=== PATIENT | male | born 1995 | race Caucasian/White ===

== ENCOUNTER 2017-02-28 02:14 | Inpatient (IN) | payer MEDICAID ==
[2017-02-28] MEDS ORDERED: Albuterol-Ipratrop 3 mg / 0.5 (3 ml) UD ONE ×3 (02:24→09:00)
[2017-02-28] MEDS ORDERED: Sodium Chloride 0.9% 1,000 ML IV ONE (02:42)
[2017-02-28] MEDS: Albuterol-Ipratrop 3 mg / 0.5 (3 ml) UD IH SCH (02:45)
[2017-02-28 03:03] LABS: BASO # 0.1 K/uL (0.0-0.2); BASO % 0.8 % (0.0-2.0); EOS # 0.2 K/uL (0.0-0.7); EOS % 2.4 % (0.0-4.0); HEMATOCRIT 49.6 % (35.0-51.0); LYMPH # 0.9 K/uL (1.0-4.3); LYMPH % 13.9 % (20.0-40.0); MEAN CORPUSCULAR HEMOGLOBIN 29.5 pg (27.0-31.0); MEAN CORPUSCULAR HGB CONC 33.6 g/dL (33.0-37.0); MEAN PLATELET VOLUME 10.1 fL (7.2-11.7); MONO # 0.7 K/uL (0.0-0.8); MONO % 11.1 % (0.0-10.0); NRBC % 0.1 % (0.0-2.0); RED CELL DISTRIBUTION WIDTH 13.5 % (11.5-14.5); WHITE BLOOD COUNT 6.6 K/uL (4.8-10.8)
[2017-02-28 03:21] LABS: CHLORIDE 101 mmol/L (98-107); SODIUM 142 mmol/L (132-148)
[2017-02-28 03:23] LABS: AST/SGOT 28 U/L (17-59); BILIRUBIN,TOTAL 1.2 mg/dL (0.2-1.3); CARBON DIOXIDE 24 mmol/L (22-30); GFR AFRICAN-AMERICAN > 60
[2017-02-28 03:24] LABS: ALB/GLOB RATIO 1.3 (1.0-2.1); ALKALINE PHOSPHATASE 87 U/L (38-126); ALT/SGPT 22 U/L (21-72); BLOOD UREA NITROGEN 14 mg/dL (9-20); CALCIUM 9.2 mg/dl (8.6-10.4); GLUCOSE,RANDOM 96 mg/dL (75-110); TOTAL PROTEIN 7.6 g/dL (6.3-8.3)
--- NOTE | 2017-02-28 03:48 | C.PDOC ---
History Of Present Illness 22 yo male c/o SOB for 5 days, worse recently. Has been using his nebulizer at home without relief. Notes his chest feels "tight", no chest pain. No recent asthma exacerbation admission - "not since I was a teen." No fever. Time Seen by Provider: 02/28/17 02:21 Chief Complaint (Nursing): Shortness Of Breath History Per: Patient History/Exam Limitations: no limitations Onset/Duration Of Symptoms: Days Current Symptoms Are (Timing): Still Present Past Medical History Reviewed: Historical Data, Nursing Documentation, Vital Signs Vital Signs: Last Vital Signs Temp 98 F 02/28/17 02:28 Pulse 89 02/28/17 02:28 Resp 16 02/28/17 02:31 BP 132/82 02/28/17 02:28 Pulse Ox 90 L 02/28/17 04:55 - Medical History PMH: Asthma - [facility] Procedures LINEAR REP LID LACER (04/04/13) Family History: States: Unknown Family Hx - Social History Hx Tobacco Use: No Hx Alcohol Use: No Hx Substance Use: Yes - Immunization History Hx Tetanus Toxoid Vaccination: Yes Hx Influenza Vaccination: Yes Hx Pneumococcal Vaccination: Yes Review Of Systems Except As Marked, All Systems Reviewed And Found Negative. Respiratory: Positive for: Shortness of Breath, Wheezing Physical Exam - Physical Exam Appears: Well, Non-toxic, In Acute Distress (respiratory distress) Skin: Warm, Dry Head: Atraumatic, Normacephalic Eye(s): bilateral: Normal Inspection, EOMI Nose: Normal Oral Mucosa: Moist Throat: Normal, No Erythema, No Exudate Neck: Normal ROM, Supple Chest: Symmetrical Cardiovascular: Rhythm Regular Respiratory: No Rales, No Rhonchi, Wheezing (Bilateral wheezing) Gastrointestinal/Abdominal: Soft, No Tenderness Neurological/Psych: Oriented x3, Normal Speech, Normal Cognition, Other (No focal deficit) ED Course And Treatment - Laboratory Results Result Diagrams: 02/28/17 02:58 02/28/17 02:58 O2 Sat by Pulse Oximetry: 90 Pulse Ox Interpretation: Abnormal - Radiology CXR: Interpreted by Me, Viewed By Me CXR Interpretation: Yes: No Acute Disease Progress Note: Impression: A 22 y/o M c/o chest pain and wheezing. Plans: CXR, Nebulizer treatment, PrednisoLONE, IV fluids, Reassess. On re-evaluation, pt continues to wheezing and c/o sob. Pulse ox 92% on RA. Case discsused ith Dr Velasco, agreed upon admission. Disposition - Disposition Disposition: HOSPITALIZED Disposition Time: 05:00 Condition: STABLE - Clinical Impression Clinical Impression: Status asthmaticus, Hypoxia - Scribe Statement The provider has reviewed the documentation as recorded by the Scribe Syl laura All medical record entries made by the Scribe were at my direction and personally dictated by me. I have reviewed the chart and agree that the record accurately reflects my personal performance of the history, physical exam, medical decision making, and the department course for this patient. I have also personally directed, reviewed, and agree with the discharge instructions and disposition.
[2017-02-28] MEDS: Albuterol-Ipratrop 3 mg / 0.5 (3 ml) UD INH SCH ×5 (04:00→19:57)
[2017-02-28] MEDS ORDERED: Moxifloxacin IV 400mg/250ml NS 400 MG/250 ML BAG IVPB ONE (06:00)
[2017-02-28] MEDS ORDERED: Enoxaparin 150 mg Syringe SC SCH (06:00)
--- NOTE | 2017-02-28 07:37 | RAD ---
PROCEDURE: CHEST RADIOGRAPH, 1 VIEW HISTORY: Shortness of breath COMPARISON: None available. FINDINGS: LUNGS: Hyperinflation with peribronchial cuffing suggestive for underlying asthma. Question biapical pleural thickening. No gross focal infiltrate or effusion. PLEURA: No pneumothorax or pleural fluid seen. CARDIOVASCULAR: Normal. OSSEOUS STRUCTURES: No significant abnormalities. VISUALIZED UPPER ABDOMEN: Normal. OTHER FINDINGS: None. IMPRESSION: Hyperinflation with peribronchial cuffing suggestive for underlying asthma. Question biapical pleural thickening. No gross focal infiltrate or effusion.
[2017-02-28] MEDS: Pantoprazole 40 mg EC Tab PO SCH (10:22)
[2017-02-28] MEDS: Fluticasone-Salmeterol 250-50mcg Diskus INH SCH ×2 (11:20→19:59)
--- NOTE | 2017-02-28 12:58 | CP.PCM.CON ---
History of Present Illness - History of Present Illness History of Present Illness: reason for consultation: shortness of breat 22-year-old male with history off asthma presented to emergency room complaining off worsening shortness of breath. patient states that he is been using rescue inhaler more frequently without any response. Also complaining off slight cough but denies fever chills, denies chest pain Review of Systems - Review of Systems All systems: reviewed and no additional remarkable complaints except (shortness of breath) Past Patient History - Infectious Disease Hx of Infectious Diseases: None - Past Medical History & Family History Past Medical History?: No - Past Social History Smoking Status: Never Smoked - PULMONARY Hx Asthma: Yes - MUSCULOSKELETAL/RHEUMATOLOGICAL Hx Falls: No - PSYCHIATRIC Hx Substance Use: Yes (marajuana) - SURGICAL HISTORY Hx Surgeries: No - ANESTHESIA Hx Anesthesia: No Hx Anesthesia Reactions: No Hx Malignant Hyperthermia: No Meds Allergies/Adverse Reactions: Allergies Allergy/AdvReac Type Severity Reaction Status Date / Time tree nut Allergy Verified 02/28/17 04:04 Peanuts Allergy SHORTNESS Uncoded 02/28/17 04:05 OF BREATH - Medications Medications: Current Medications Albuterol/Ipratropium (Duoneb 3 Mg/0.5 Mg (3 Ml) Ud) 3 ml INH Q4 [facility] Last Admin: 02/28/17 11:20 Dose: 3 ml Enoxaparin Sodium (Lovenox) 40 mg SC Q12H [facility] Last Admin: 02/28/17 08:38 Dose: 40 mg Montelukast Sodium (Singulair) 10 mg PO DAILY [facility] Last Admin: 02/28/17 10:22 Dose: 10 mg Pantoprazole Sodium (Protonix Ec Tab) 40 mg PO DAILY [facility] Last Admin: 02/28/17 10:22 Dose: 40 mg Fluticasone/Salmeterol (Advair Diskus 250/50) 1 puff INH RQ12 [facility] Last Admin: 02/28/17 11:20 Dose: Not Given Physical Exam - Constitutional Appears: No Acute Distress - Head Exam Head Exam: ATRAUMATIC, NORMOCEPHALIC - Eye Exam Eye Exam: Normal appearance - ENT Exam ENT Exam: Mucous Membranes Moist - Neck Exam Neck exam: Positive for: Normal Inspection - Respiratory Exam Respiratory Exam: Rhonchi - Cardiovascular Exam Cardiovascular Exam: REGULAR RHYTHM - GI/Abdominal Exam GI & Abdominal Exam: Normal Bowel Sounds, Soft - Extremities Exam Extremities exam: Positive for: normal inspection - Neurological Exam Neurological exam: Alert, Oriented x3 Results - Vital Signs Recent Vital Signs: Last Vital Signs Temp 97.9 F 02/28/17 10:15 Pulse 110 H 02/28/17 10:15 Resp 16 02/28/17 10:15 BP 119/74 02/28/17 10:15 Pulse Ox 85 L 02/28/17 10:15 - Labs Result Diagrams: 02/28/17 02:58 02/28/17 02:58 Assessment & Plan (1) Asthma attack Status: Acute Comment: IV steroids, nebulizer. Singulair. Peak flow q. shift
--- NOTE | 2017-02-28 13:20 | CP.PCM.HP ---
History of Present Illness - History of Present Illness History of Present Illness: 22 years old male patient with past medical history of asthma presented to the emergency room with complaint of worsening shortness of breath, wheezing Patient has been using inhaler more frequently without any relief. Complaint of mild cough, tightness of chest. No fever, nausea, vomiting No diarrhea, urinary symptoms No recent history of trauma or fall, no limb swelling No allergic history Present on Admission - Present on Admission Any Indicators Present on Admission: No Past Patient History - Infectious Disease Hx of Infectious Diseases: None - Past Medical History & Family History Past Medical History?: No - Past Social History Smoking Status: Never Smoked - PULMONARY Hx Asthma: Yes - MUSCULOSKELETAL/RHEUMATOLOGICAL Hx Falls: No - PSYCHIATRIC Hx Substance Use: Yes ([facility]) - SURGICAL HISTORY Hx Surgeries: No - ANESTHESIA Hx Anesthesia: No Hx Anesthesia Reactions: No Hx Malignant Hyperthermia: No Meds Allergies/Adverse Reactions: Allergies Allergy/AdvReac Type Severity Reaction Status Date / Time tree nut Allergy Verified 02/28/17 04:04 Peanuts Allergy SHORTNESS Uncoded 02/28/17 04:05 OF BREATH Physical Exam - Constitutional Appears: Well - Head Exam Head Exam: ATRAUMATIC, NORMAL INSPECTION, NORMOCEPHALIC - Eye Exam Eye Exam: EOMI, Normal appearance, PERRL Pupil Exam: NORMAL ACCOMODATION, PERRL - ENT Exam ENT Exam: Mucous Membranes Moist, Normal Exam - Neck Exam Neck exam: Positive for: Normal Inspection - Respiratory Exam Respiratory Exam: Decreased Breath Sounds - Cardiovascular Exam Cardiovascular Exam: REGULAR RHYTHM, +S1, +S2 - GI/Abdominal Exam GI & Abdominal Exam: Diminished Bowel Sounds, Soft - Rectal Exam Rectal Exam: Deferred Results - Vital Signs Recent Vital Signs: Last Vital Signs Temp 97.9 F 02/28/17 10:15 Pulse 110 H 02/28/17 10:15 Resp 16 02/28/17 10:15 BP 119/74 02/28/17 10:15 Pulse Ox 85 L 02/28/17 10:15 - Labs Result Diagrams: 02/28/17 02:58 02/28/17 02:58 Assessment & Plan (1) Acute headache Status: Acute (2) Asthma attack Status: Acute (3) Hypoxia Status: Acute (4) Status asthmaticus Status: Acute - Assessment and Plan (Free Text) Plan: Labs and meds reviewed Chest x-ray noted Prednisolone IV fluids Reassess Pulse oximetry Nebulizers Singulair Pulmonic consult Labs next a.m.
[2017-02-28] MEDS: MethylPREDNISolone 40 mg Vial IV SCH ×2 (13:25→22:08)
[2017-03-01] MEDS: Albuterol-Ipratrop 3 mg / 0.5 (3 ml) UD INH SCH ×6 (00:23→19:35)
[2017-03-01] MEDS: MethylPREDNISolone 40 mg Vial IV SCH ×3 (05:36→21:23)
[2017-03-01] MEDS: Fluticasone-Salmeterol 250-50mcg Diskus INH SCH ×2 (08:30→19:36)
[2017-03-01] MEDS: Pantoprazole 40 mg EC Tab PO SCH (09:37)
[2017-03-01] MEDS: Enoxaparin 40 mg Syringe SC SCH (09:37)
--- NOTE | 2017-03-01 11:38 | CP.PCM.PN ---
<DatsofiaAixa - Last Filed: 03/01/17 13:53> Subjective - Date & Time of Evaluation Date of Evaluation: 03/01/17 Time of Evaluation: 11:35 - Subjective Subjective: PGY2 progress note for Dr. Velasco 22 year old male with past medical history of mild asthma presented for shortness of breath. Patient states he was feeling short of breath for about 1 week but in last day or so, it was worse and accompanied with sore throat and cough. Patient used his ventolin inhaler and albuterol nebulizer without much relief. patient also states that he vomited once prior to coming to ED. Patient denies having any history of intubations. Patient still c/o of chest tightness and shortness of breath. Denies having any CP, abd pain, N/V/D/C, F/ C at this time. PMHx: asthma Sx; none Meds: Ventolin, albuterol nebulizer Social: Denies tobacco use. Smoker marijuana regularly. No ETOH or other illicit drug use Objective - Vital Signs/Intake and Output Vital Signs (last 24 hours): Temp Pulse Resp BP Pulse Ox 97.5 F L 72 20 133/76 92 L 03/01/17 08:00 03/01/17 08:00 03/01/17 08:00 03/01/17 08:00 03/01/17 08:00 - Medications Medications: Current Medications Albuterol/Ipratropium (Duoneb 3 Mg/0.5 Mg (3 Ml) Ud) 3 ml INH Q4 [facility] Last Admin: 03/01/17 08:12 Dose: 3 ml Enoxaparin Sodium (Lovenox) 40 mg SC DAILY [facility] Last Admin: 03/01/17 09:37 Dose: 40 mg Methylprednisolone (Solu-Medrol) 40 mg IV Q8 [facility] Last Admin: 03/01/17 05:36 Dose: 40 mg Montelukast Sodium (Singulair) 10 mg PO DAILY [facility] Last Admin: 03/01/17 09:37 Dose: 10 mg Pantoprazole Sodium (Protonix Ec Tab) 40 mg PO DAILY [facility] Last Admin: 03/01/17 09:37 Dose: 40 mg Fluticasone/Salmeterol (Advair Diskus 250/50) 1 puff INH RQ12 [facility] Last Admin: 03/01/17 08:30 Dose: 1 puff - Constitutional Appears: Non-toxic, No Acute Distress - Head Exam Head Exam: ATRAUMATIC - Eye Exam Eye Exam: EOMI - ENT Exam ENT Exam: Mucous Membranes Moist - Respiratory Exam Respiratory Exam: Wheezes. absent: Accessory Muscle Use, Rales, Rhonchi, Respiratory Distress - Cardiovascular Exam Cardiovascular Exam: REGULAR RHYTHM, +S1, +S2. absent: Gallop, Rubs, Murmur - GI/Abdominal Exam GI & Abdominal Exam: Soft, Normal Bowel Sounds. absent: Distended, Firm, Guarding, Rigid, Tenderness, Organomegaly - Extremities Exam Extremities Exam: absent: Pedal Edema, Tenderness - Neurological Exam Neurological Exam: Alert, Awake, Oriented x3 - Psychiatric Exam Psychiatric exam: Normal Affect, Normal Mood - Skin Skin Exam: Dry, Intact, Normal Color, Warm Assessment and Plan - Assessment and Plan (Free Text) Assessment: 22 year old male with past medical history of mild asthma is admitted for shortness of breath likely due to asthma exacerbation. CXR on admission showed hyperinflation with peribronchial cuffing suggestive of underlying asthma, no gross infiltrate or effusion. Patient was afebrile on admission and had normal WBC count. 1. Asthma exacerbation - Pulm, Dr. Mathew is consulted - Continue Solumedrol 40 mg IV q8, Singulair 10 mg po qd, Advair 1 puff q12, Duoneb q4 [facility] - Will continue to monitor clinically 2. Prophylaxis - Lovenox - Protonix Orders and management per Dr. Velasco <Peter Velasco S - Last Filed: 04/07/17 23:40> Objective - Vital Signs/Intake and Output Vital Signs (last 24 hours): Temp Pulse Resp BP Pulse Ox 98.1 F 65 20 128/64 97 03/03/17 08:47 03/03/17 08:47 03/03/17 08:47 03/03/17 08:47 03/03/17 08:47 Assessment and Plan (1) Asthma attack Status: Acute (2) Hypoxia Status: Acute (3) Status asthmaticus Status: Acute (4) Acute headache Status: Acute Attending/Attestation - Attestation I have personally seen and examined this patient.: Yes I have fully participated in the care of the patient.: Yes I have reviewed all pertinent clinical information, including history, physical exam and plan: Yes Notes (Text): Case seen and discussed with the staff and the resident
--- NOTE | 2017-03-01 16:47 | CP.PCM.PN ---
Subjective - Date & Time of Evaluation Date of Evaluation: 03/01/17 Time of Evaluation: 15:30 - Subjective Subjective: still complaining of shortness of breath, wheezing and cough Denies fever chills, denies chest pain Objective - Vital Signs/Intake and Output Vital Signs (last 24 hours): Temp Pulse Resp BP Pulse Ox 97.5 F L 72 20 133/76 92 L 03/01/17 08:00 03/01/17 08:00 03/01/17 08:00 03/01/17 08:00 03/01/17 08:00 - Medications Medications: Current Medications Albuterol/Ipratropium (Duoneb 3 Mg/0.5 Mg (3 Ml) Ud) 3 ml INH RQ4 [facility] Enoxaparin Sodium (Lovenox) 40 mg SC DAILY [facility] Last Admin: 03/01/17 09:37 Dose: 40 mg Methylprednisolone (Solu-Medrol) 40 mg IV Q8 [facility] Last Admin: 03/01/17 14:25 Dose: 40 mg Montelukast Sodium (Singulair) 10 mg PO HS [facility] Pantoprazole Sodium (Protonix Ec Tab) 40 mg PO DAILY [facility] Last Admin: 03/01/17 09:37 Dose: 40 mg Fluticasone/Salmeterol (Advair Diskus 250/50) 1 puff INH RQ12 [facility] Last Admin: 03/01/17 08:30 Dose: 1 puff - Head Exam Head Exam: ATRAUMATIC, NORMOCEPHALIC - Eye Exam Eye Exam: Normal appearance - ENT Exam ENT Exam: Mucous Membranes Moist - Neck Exam Neck Exam: Normal Inspection - Respiratory Exam Respiratory Exam: Rhonchi - Cardiovascular Exam Cardiovascular Exam: REGULAR RHYTHM - GI/Abdominal Exam GI & Abdominal Exam: Soft, Normal Bowel Sounds - Extremities Exam Extremities Exam: Full ROM, Normal Inspection Assessment and Plan (1) Asthma attack Assessment & Plan: continue IV steroids, nebulizer treatment, Singulair Followup peak flow Status: Acute
--- NOTE | 2017-03-01 16:48 | CP.PCM.PN ---
Subjective - Date & Time of Evaluation Date of Evaluation: 03/01/17 Time of Evaluation: 12:20 - Subjective Subjective: clinically same Objective - Vital Signs/Intake and Output Vital Signs (last 24 hours): Temp Pulse Resp BP Pulse Ox 97.5 F L 72 20 133/76 92 L 03/01/17 08:00 03/01/17 08:00 03/01/17 08:00 03/01/17 08:00 03/01/17 08:00 - Medications Medications: Current Medications Albuterol/Ipratropium (Duoneb 3 Mg/0.5 Mg (3 Ml) Ud) 3 ml INH Q4 [facility] Last Admin: 03/01/17 15:41 Dose: 3 ml Enoxaparin Sodium (Lovenox) 40 mg SC DAILY [facility] Last Admin: 03/01/17 09:37 Dose: 40 mg Methylprednisolone (Solu-Medrol) 40 mg IV Q8 [facility] Last Admin: 03/01/17 14:25 Dose: 40 mg Montelukast Sodium (Singulair) 10 mg PO DAILY [facility] Last Admin: 03/01/17 09:37 Dose: 10 mg Pantoprazole Sodium (Protonix Ec Tab) 40 mg PO DAILY [facility] Last Admin: 03/01/17 09:37 Dose: 40 mg Fluticasone/Salmeterol (Advair Diskus 250/50) 1 puff INH RQ12 [facility] Last Admin: 03/01/17 08:30 Dose: 1 puff - Constitutional Appears: Well - Head Exam Head Exam: ATRAUMATIC, NORMAL INSPECTION, NORMOCEPHALIC - Eye Exam Eye Exam: EOMI, Normal appearance, PERRL Pupil Exam: NORMAL ACCOMODATION, PERRL - ENT Exam ENT Exam: Mucous Membranes Moist, Normal Exam - Neck Exam Neck Exam: Full ROM, Normal Inspection. absent: Lymphadenopathy - Respiratory Exam Respiratory Exam: Decreased Breath Sounds - Cardiovascular Exam Cardiovascular Exam: REGULAR RHYTHM, +S1, +S2 - GI/Abdominal Exam GI & Abdominal Exam: Soft, Diminished Bowel Sounds - Rectal Exam Rectal Exam: Deferred Assessment and Plan (1) Asthma attack Status: Acute (2) Hypoxia Status: Acute (3) Status asthmaticus Status: Acute (4) Acute headache Status: Acute - Assessment and Plan (Free Text) Plan: No acute event overnight Symptoms improving Dr. Mathew Continue Solu-Medrol DuoNeb Close monitoring DVT prophylaxis Protonix Labs next a.m.
[2017-03-02] MEDS: Albuterol-Ipratrop 3 mg / 0.5 (3 ml) UD INH SCH ×6 (00:37→19:17)
[2017-03-02] MEDS: MethylPREDNISolone 40 mg Vial IV SCH ×3 (05:14→22:52)
[2017-03-02] MEDS: Fluticasone-Salmeterol 250-50mcg Diskus INH SCH (08:25)
[2017-03-02] MEDS: Enoxaparin 40 mg Syringe SC SCH (09:40)
[2017-03-02] MEDS: Pantoprazole 40 mg EC Tab PO SCH (09:40)
--- NOTE | 2017-03-02 12:14 | CP.PCM.PN ---
Subjective - Date & Time of Evaluation Date of Evaluation: 03/02/17 Time of Evaluation: 11:20 - Subjective Subjective: clinically same Objective - Vital Signs/Intake and Output Vital Signs (last 24 hours): Temp Pulse Resp BP Pulse Ox 98.8 F 88 20 129/61 98 03/02/17 07:19 03/02/17 07:19 03/02/17 07:19 03/02/17 07:19 03/02/17 07:19 - Medications Medications: Current Medications Albuterol/Ipratropium (Duoneb 3 Mg/0.5 Mg (3 Ml) Ud) 3 ml INH RQ4 [facility] Last Admin: 03/02/17 12:02 Dose: 3 ml Enoxaparin Sodium (Lovenox) 40 mg SC DAILY [facility] Last Admin: 03/02/17 09:40 Dose: 40 mg Methylprednisolone (Solu-Medrol) 40 mg IV Q8 [facility] Last Admin: 03/02/17 05:14 Dose: 40 mg Montelukast Sodium (Singulair) 10 mg PO HS [facility] Last Admin: 03/01/17 21:23 Dose: 10 mg Pantoprazole Sodium (Protonix Ec Tab) 40 mg PO DAILY [facility] Last Admin: 03/02/17 09:40 Dose: 40 mg Fluticasone/Salmeterol (Advair Diskus 250/50) 1 puff INH RQ12 [facility] Last Admin: 03/02/17 08:25 Dose: 1 puff - Constitutional Appears: Well - Head Exam Head Exam: ATRAUMATIC, NORMAL INSPECTION, NORMOCEPHALIC - Eye Exam Eye Exam: EOMI, Normal appearance, PERRL Pupil Exam: NORMAL ACCOMODATION, PERRL - ENT Exam ENT Exam: Mucous Membranes Moist, Normal Exam - Neck Exam Neck Exam: Full ROM, Normal Inspection. absent: Lymphadenopathy - Respiratory Exam Respiratory Exam: Decreased Breath Sounds - Cardiovascular Exam Cardiovascular Exam: REGULAR RHYTHM, +S1, +S2 - GI/Abdominal Exam GI & Abdominal Exam: Soft, Diminished Bowel Sounds - Rectal Exam Rectal Exam: Deferred Assessment and Plan (1) Asthma attack Status: Acute (2) Hypoxia Status: Acute (3) Status asthmaticus Status: Acute (4) Acute headache Status: Acute - Assessment and Plan (Free Text) Plan: Patient feeling better No acute events Lovenox Solu-Medrol Singulair Protonix Nebulizers Dr. Mathew on board Continue as advised Vitals monitoring Labs next a.m.
[2017-03-03] MEDS: Albuterol-Ipratrop 3 mg / 0.5 (3 ml) UD INH SCH ×4 (00:23→12:00)
[2017-03-03 00:25] VITALS: O2SAT 97
[2017-03-03] MEDS: MethylPREDNISolone 40 mg Vial IV SCH ×2 (05:56→13:21)
[2017-03-03] MEDS: Fluticasone-Salmeterol 250-50mcg Diskus INH SCH (08:04)
[2017-03-03 08:48] VITALS: BP 128/64; PULSE 65; RESP 20; TEMP 98.1
[2017-03-03] MEDS: Pantoprazole 40 mg EC Tab PO SCH (10:08)
[2017-03-03] MEDS: Enoxaparin 40 mg Syringe SC SCH (10:08)
--- NOTE | 2017-03-03 12:26 | CP.PCM.PN ---
Subjective - Date & Time of Evaluation Date of Evaluation: 03/03/17 Time of Evaluation: 11:00 - Subjective Subjective: Patient seen and examined. Lying comfortably in no acute distress Breathing much improved Denies cough, denies fever chills, denies chest pain Objective - Vital Signs/Intake and Output Vital Signs (last 24 hours): Temp Pulse Resp BP Pulse Ox 98.1 F 65 20 128/64 97 03/03/17 08:47 03/03/17 08:47 03/03/17 08:47 03/03/17 08:47 03/03/17 08:47 - Medications Medications: Current Medications Albuterol/Ipratropium (Duoneb 3 Mg/0.5 Mg (3 Ml) Ud) 3 ml INH RQ4 [facility] Last Admin: 03/03/17 08:04 Dose: 3 ml Enoxaparin Sodium (Lovenox) 40 mg SC DAILY [facility] Last Admin: 03/03/17 10:08 Dose: 40 mg Methylprednisolone (Solu-Medrol) 40 mg IV Q8 [facility] Last Admin: 03/03/17 05:56 Dose: 40 mg Montelukast Sodium (Singulair) 10 mg PO HS [facility] Last Admin: 03/02/17 22:52 Dose: 10 mg Pantoprazole Sodium (Protonix Ec Tab) 40 mg PO DAILY [facility] Last Admin: 03/03/17 10:08 Dose: 40 mg Fluticasone/Salmeterol (Advair Diskus 250/50) 1 puff INH RQ12 [facility] Last Admin: 03/03/17 08:04 Dose: 1 puff - Constitutional Appears: No Acute Distress - Head Exam Head Exam: ATRAUMATIC, NORMOCEPHALIC - Eye Exam Eye Exam: Normal appearance - ENT Exam ENT Exam: Mucous Membranes Moist - Neck Exam Neck Exam: Full ROM, Normal Inspection - Respiratory Exam Respiratory Exam: Clear to Ausculation Bilateral - Cardiovascular Exam Cardiovascular Exam: REGULAR RHYTHM - GI/Abdominal Exam GI & Abdominal Exam: Soft, Normal Bowel Sounds - Extremities Exam Extremities Exam: Full ROM, Normal Inspection Assessment and Plan (1) Asthma attack Assessment & Plan: Stable from pulmonary standpoint Discharge patient home on prednisone, inhaled steroid, Singulair and rescue inhaler Follow-up in the office for pft and allergy test Status: Acute
--- NOTE | 2017-03-03 12:31 | CP.PCM.PN ---
Subjective - Date & Time of Evaluation Date of Evaluation: 03/03/17 Time of Evaluation: 12:00 - Subjective Subjective: clinically same Objective - Vital Signs/Intake and Output Vital Signs (last 24 hours): Temp Pulse Resp BP Pulse Ox 98.1 F 65 20 128/64 97 03/03/17 08:47 03/03/17 08:47 03/03/17 08:47 03/03/17 08:47 03/03/17 08:47 - Medications Medications: Current Medications Albuterol/Ipratropium (Duoneb 3 Mg/0.5 Mg (3 Ml) Ud) 3 ml INH RQ4 [facility] Last Admin: 03/03/17 08:04 Dose: 3 ml Enoxaparin Sodium (Lovenox) 40 mg SC DAILY [facility] Last Admin: 03/03/17 10:08 Dose: 40 mg Methylprednisolone (Solu-Medrol) 40 mg IV Q8 [facility] Last Admin: 03/03/17 05:56 Dose: 40 mg Montelukast Sodium (Singulair) 10 mg PO HS [facility] Last Admin: 03/02/17 22:52 Dose: 10 mg Pantoprazole Sodium (Protonix Ec Tab) 40 mg PO DAILY [facility] Last Admin: 03/03/17 10:08 Dose: 40 mg Fluticasone/Salmeterol (Advair Diskus 250/50) 1 puff INH RQ12 [facility] Last Admin: 03/03/17 08:04 Dose: 1 puff - Constitutional Appears: Well - Head Exam Head Exam: ATRAUMATIC, NORMAL INSPECTION, NORMOCEPHALIC - Eye Exam Eye Exam: EOMI, Normal appearance, PERRL Pupil Exam: NORMAL ACCOMODATION, PERRL - ENT Exam ENT Exam: Mucous Membranes Moist, Normal Exam - Neck Exam Neck Exam: Full ROM, Normal Inspection. absent: Lymphadenopathy - Respiratory Exam Respiratory Exam: Decreased Breath Sounds - Cardiovascular Exam Cardiovascular Exam: REGULAR RHYTHM, +S1, +S2 - GI/Abdominal Exam GI & Abdominal Exam: Soft, Diminished Bowel Sounds - Rectal Exam Rectal Exam: Deferred Assessment and Plan (1) Asthma attack Status: Acute (2) Hypoxia Status: Acute (3) Status asthmaticus Status: Acute (4) Acute headache Status: Acute - Assessment and Plan (Free Text) Plan: Patient clinically better Symptoms improved No acute events overnight Discharge to home Nebulizers at home Continue meds as advised Follow-up as outpatient Return to ED if symptom recurs
== END 2017-03-03 14:45 | disposition home or self-care (01) | DRG 96 ==
LOC: C.ER 02:14 → C.9E 03:48 → C.6T 09:54 → OBSVTOIN 03-02 18:52
PROVIDERS: ADMIT Internal Medicine Nephrology; ATTEND Internal Medicine Nephrology
DX: J45.902 Unspecified asthma with status asthmaticus (principal); R09.02 Hypoxemia; F12.90 Cannabis use, unspecified, uncomplicated; R51 Headache

== ENCOUNTER 2017-12-19 16:02 | Emergency (ER) | payer MEDICAID, OTHER ==
[2017-12-19 16:08] VITALS: BP 143/80; PULSE 56; RESP 20; TEMP 98.1; O2SAT 95
--- NOTE | 2017-12-19 17:46 | RAD ---
HISTORY: Pain, SOB, wheezing COMPARISON: 02/28/2017 TECHNIQUE: Chest PA and lateral FINDINGS: LUNGS: No active pulmonary disease. PLEURA: No significant pleural effusion identified. No pneumothorax apparent. CARDIOVASCULAR: Normal. OSSEOUS STRUCTURES: No significant abnormalities. VISUALIZED UPPER ABDOMEN: Normal. OTHER FINDINGS: None. IMPRESSION: No active disease. No significant interval change compared to the prior examination(s).
--- NOTE | 2017-12-19 17:54 | C.PDOC ---
Time Seen by Provider: 12/19/17 16:43 Chief Complaint (Nursing): Shortness Of Breath History Per: Patient Onset/Duration Of Symptoms: Days (about 1 week) Current Symptoms Are (Timing): Still Present Current Respiratory Medications: See Home Med List, Albuterol Severity: Moderate Associated Symptoms: Chest Pain Additional History Per: Prior Records Past Medical History Reviewed: Historical Data, Nursing Documentation, Vital Signs Vital Signs: Last Vital Signs Temp 98.1 F 12/19/17 16:06 Pulse 56 L 12/19/17 16:06 Resp 20 12/19/17 16:44 BP 143/80 12/19/17 16:06 Pulse Ox 95 12/19/17 16:06 - Medical History PMH: Asthma - [facility] Procedures LINEAR REP LID LACER (04/04/13) Family History: States: Unknown Family Hx - Social History Hx Tobacco Use: No Hx Alcohol Use: No (socially) Hx Substance Use: No ([facility]) - Immunization History Hx Tetanus Toxoid Vaccination: Yes Hx Influenza Vaccination: Yes Hx Pneumococcal Vaccination: Yes Review Of Systems Except As Marked, All Systems Reviewed And Found Negative. Constitutional: Negative for: Fever ENT: Negative for: Throat Pain Respiratory: Positive for: Shortness of Breath, Wheezing. Negative for: Hemoptysis Gastrointestinal: Negative for: Vomiting, Abdominal Pain Musculoskeletal: Negative for: Neck Pain, Back Pain, Leg Pain Skin: Negative for: Rash Neurological: Negative for: Weakness, Numbness Physical Exam - Physical Exam Appears: Non-toxic, No Acute Distress Skin: Normal Color, Warm, Dry, No Rash Head: Atraumatic, Normacephalic Eye(s): bilateral: Normal Inspection, PERRL, EOMI Neck: Normal ROM, Supple Cardiovascular: Rhythm Regular Respiratory: No Accessory Muscle Use, Wheezing (scattered, intermittent) Gastrointestinal/Abdominal: Soft, No Tenderness Back: No CVA Tenderness Extremity: Normal ROM, No Pedal Edema, No Calf Tenderness Neurological/Psych: Oriented x3, Normal Speech, Normal Motor, Normal Sensation ED Course And Treatment O2 Sat by Pulse Oximetry: 95 Pulse Ox Interpretation: Normal - Radiology CXR: Interpreted by Me, Viewed By Me CXR Interpretation: Yes: No Acute Disease, Heart Size (wnl) Medical Decision Making Medical Decision Making: PERC rule negative. Disposition Counseled Patient/Family Regarding: Studies Performed, Diagnosis, Need For Followup, Rx Given - Disposition Referrals: [facility] at [facility] [Outside] Disposition: HOME/ ROUTINE Disposition Time: 17:54 Condition: STABLE Additional Instructions: Follow up in the clinic within 1 week of further evaluation and treatment. Return to the ER if you develop worsening of symptoms or if you have any other concerns. Prescriptions: predniSONE [predniSONE Tab] 2 tab PO DAILY #10 tab Instructions: Asthma, Adult (DC) Forms: General Discharge Instructions - Clinical Impression Clinical Impression: Asthma exacerbation
== END 2017-12-19 18:05 | disposition home or self-care (01) ==
LOC: C.ER 16:02
DX: J45.901 Unspecified asthma with (acute) exacerbation (principal)

== ENCOUNTER 2018-05-05 09:46 | Emergency (ER) | payer MEDICAID ==
[2018-05-05] MEDS ORDERED: Sodium Chloride 0.9% 500 ML IV ONE ×2 (10:31→10:49)
[2018-05-05] MEDS ORDERED: Albuterol-Ipratrop 3 mg / 0.5 (3 ml) UD ONE (10:49)
[2018-05-05] MEDS: Albuterol-Ipratrop 3 mg / 0.5 (3 ml) UD IH SCH ×3 (10:50→11:10)
[2018-05-05 11:18] LABS: BASO % 0.7 % (0.0-2.0); EOS # 0.2 K/uL (0.0-0.7); HEMOGLOBIN 15.6 g/dL (12.0-18.0); LYMPH # 0.5 K/uL (1.0-4.3); LYMPH % 10.8 % (20.0-40.0); MEAN CELL VOLUME 89.4 fL (80.0-94.0); MEAN CORPUSCULAR HEMOGLOBIN 30.5 pg (27.0-31.0); MEAN CORPUSCULAR HGB CONC 34.1 g/dL (33.0-37.0); MEAN PLATELET VOLUME 9.8 fL (7.2-11.7); MONO # 0.5 K/uL (0.0-0.8); MONO % 12.1 % (0.0-10.0); NEUT # 3.2 K/uL (1.8-7.0); NEUT % 71.4 % (50.0-75.0); RBC 5.11 Mil/uL (4.40-5.90); RED CELL DISTRIBUTION WIDTH 14.2 % (11.5-14.5); WHITE BLOOD COUNT 4.5 K/uL (4.8-10.8)
[2018-05-05 11:37] LABS: ALB/GLOB RATIO 1.5 (1.0-2.1); ALBUMIN 4.2 g/dL (3.5-5.0); ALT/SGPT 23 U/L (21-72); AST/SGOT 20 U/L (17-59); BLOOD UREA NITROGEN 8 mg/dL (9-20); GFR NON-AFRICAN AMERICAN > 60
--- NOTE | 2018-05-05 12:18 | C.PDOC ---
History Of Present Illness 23-year-old male, PMHX includes asthma, presents to the emergency department with complaints of a worsening cough over the past 4-5 days, that is associated with wheezing and shortness of breath. Patient states for the past two days he has been experiencing left sided chest pain, that is worse with movement. Denies any nausea/vomiting, fever, chills or any other associated symptoms. No other complaints at this time. Time Seen by Provider: 05/05/18 10:07 Chief Complaint (Nursing): Cough, Cold, Congestion History Per: Patient History/Exam Limitations: no limitations Onset/Duration Of Symptoms: Days Current Symptoms Are (Timing): Still Present Past Medical History Reviewed: Historical Data, Nursing Documentation, Vital Signs Vital Signs: Last Vital Signs Temp 98.8 F 05/05/18 10:15 Pulse 73 05/05/18 10:15 Resp 16 05/05/18 10:15 BP 115/75 05/05/18 10:15 Pulse Ox 98 05/05/18 10:15 - Medical History PMH: Asthma - [facility] Procedures LINEAR REP LID LACER (04/04/13) Family History: States: No Known Family Hx - Social History Hx Tobacco Use: No Hx Alcohol Use: No (socially) Hx Substance Use: No ([facility]) - Immunization History Hx Tetanus Toxoid Vaccination: Yes Hx Influenza Vaccination: Yes Hx Pneumococcal Vaccination: Yes Review Of Systems Constitutional: Negative for: Fever Cardiovascular: Positive for: Chest Pain Respiratory: Positive for: Cough, Shortness of Breath, Wheezing Gastrointestinal: Negative for: Nausea, Vomiting Musculoskeletal: Negative for: Back Pain Physical Exam - Physical Exam Appears: Non-toxic, No Acute Distress Skin: Warm, Dry, No Rash Head: Atraumatic, Normacephalic Eye(s): bilateral: Normal Inspection, PERRL, EOMI Nose: Normal Oral Mucosa: Moist Lips: Normal Appearing Neck: Normal ROM Chest: Symmetrical Cardiovascular: Rhythm Regular, No Murmur Respiratory: No Decreased Breath Sounds, No Accessory Muscle Use, Wheezing (Moderate B/L expiratory) Back: Normal Inspection Extremity: Normal ROM, No Deformity Neurological/Psych: Oriented x3, Normal Speech ED Course And Treatment - Laboratory Results Result Diagrams: 05/05/18 11:14 05/05/18 11:14 O2 Sat by Pulse Oximetry: 98 Pulse Ox Interpretation: Normal (RA) Medical Decision Making Medical Decision Making: Plan: * Bloodwork * Chest X-Ray * Duoneb, IVF, Solumedrol * Reassess and Disposition On re-exam, the patient reports improvement of symptoms. Lungs are CTA, heart is RRR, abdomen is soft, non-tender and the patient is tolerating PO well. Disposition - Disposition Referrals: [facility] at [facility] [Outside] Izzy Carmichael MD [Staff Provider] - Disposition: HOME/ ROUTINE Disposition Time: 13:00 Condition: STABLE Additional Instructions: Follow up with the medical doctor within 1-2 days. Return if worsened. Prescriptions: Albuterol HFA [Ventolin HFA 90 mcg/actuation (8 g)] 1 puff IH Q6 #100 puff Montelukast [Singulair] 10 mg PO DAILY #30 tab predniSONE [Prednisone] 20 mg PO BID #10 tab Instructions: Asthma in Adults Forms: [facility] ([place]) - POA Present On Arrival: None - Clinical Impression Clinical Impression: Asthma attack - Scribe Statement The provider has reviewed the documentation as recorded by the Scribe (Cruz Rowe) All medical record entries made by the Scribe were at my direction and personally dictated by me. I have reviewed the chart and agree that the record accurately reflects my personal performance of the history, physical exam, medical decision making, and the department course for this patient. I have also personally directed, reviewed, and agree with the discharge instructions and disposition.
--- NOTE | 2018-05-05 13:12 | RAD ---
Date of service: 05/05/2018 PROCEDURE: CHEST RADIOGRAPH, 1 VIEW HISTORY: SOB COMPARISON: 05/05/2018. FINDINGS: LUNGS: The lungs are well inflated and clear. PLEURA: No pneumothorax or pleural fluid seen. CARDIOVASCULAR: Normal. OSSEOUS STRUCTURES: No significant abnormalities. VISUALIZED UPPER ABDOMEN: Normal. OTHER FINDINGS: None. IMPRESSION: No active pulmonary disease.
[2018-05-05 13:40] VITALS: BP 116/72; PULSE 84; RESP 17; TEMP 98.6
--- NOTE | 2018-05-07 12:46 | CARD ---
APPROVED REPORT Date of service: 05/05/2018 EKG Measurement Heart [id number] 152P [id number] <Conclusion> Sinus bradycardia with premature atrial complexes Otherwise normal ECG
[2018-05-08 02:01] VITALS: O2SAT 98
== END 2018-05-05 13:39 | disposition home or self-care (01) ==
LOC: C.ER 09:46
DX: J45.909 Unspecified asthma, uncomplicated (principal)
CPT/HCPCS: 71045; 80053; 85025; 93005; 94640; 96374; 99285; J2930; J7040

== ENCOUNTER 2018-08-13 10:06 | Outpatient (CLI) | payer MEDICAID | END 2018-08-13 10:07 | disposition home or self-care (01) | LOC: C.CTH 10:06 | DX: J32.9 Chronic sinusitis, unspecified (principal); J34.89 Other specified disorders of nose and nasal sinuses ==

== ENCOUNTER 2018-10-14 07:31 | Day surgery (SDC) | payer MEDICAID ==
[~2018-10-14 07:31] MED LIST: EPINEPHrine 1:1000 Nasal Sol(30mL) ONE; ceFAZolin 1 gm in NS 1 GM/100 ML BAG IVPB ONE
[2018-10-14 08:27] VITALS: BMI 19.1
[2018-10-14] MEDS ORDERED: Acetaminophen-Codeine 300/30 mg Tab PO PRN (09:05)
[2018-10-14] MEDS ORDERED: Dextrose 5%/0.45% NS 1,000 ML IV SCH (09:15)
[2018-10-14] MEDS ORDERED: Propofol 10 mg/ml Inj (20 ML) ONE (10:43)
[2018-10-14] MEDS ORDERED: Midazolam 2 MG/2 ML VIAL ONE (10:43)
[2018-10-14] MEDS ORDERED: Rocuronium 10 mg/ml (5 ml) ONE (10:44)
[2018-10-14] MEDS ORDERED: Succinylcholine Chloride 20 mg/ml Syr (5 ml) IV ONE (10:44)
[2018-10-14] MEDS ORDERED: Albuterol HFA 90 mcg/actuation (8 g) ONE (10:46)
[2018-10-14] MEDS ORDERED: Lidocaine/Epinephrine 1% 1:100000 10 ML IJ ONE (10:56)
[2018-10-14] MEDS ORDERED: HYDROmorphone 0.5 mg/0.5 ml ISec IVP PRN (11:58)
[2018-10-14 13:19] VITALS: RESP 18; TEMP 97.8; O2SAT 100
[2018-10-14 15:05] VITALS: BP 133/76; PULSE 60
--- NOTE | 2018-10-14 20:37 | OP ---
PROCEDURE DATE: 10/14/2018 PREOPERATIVE DIAGNOSES: Endoscopic bilateral maxillary antrostomy, endoscopic bilateral inferior turbinate reduction. POSTOPERATIVE DIAGNOSES: Endoscopic bilateral maxillary antrostomy, endoscopic bilateral inferior turbinate reduction. FINDINGS: Large turbinates, maxillary antrum stenosed on both sides. DESCRIPTION OF PROCEDURE: The patient was brought into room, placed in supine position, anesthesia initiated through an ET tube. The patient was draped in usual manner. Navigation was set up and used throughout the case in order to ensure the orbit was not entered.. Adrenaline-soaked pledgets were inserted into nasal cavity, remained there for 5 minutes and removed. The inferior turbinates reduced in size using scissors going from an inferior to superior, anterior posterior direction on both sides, first on the left and the right endoscopically. Next, a 0 degree scope was inserted into the left nasal cavity. The middle turbinate was injected with lidocaine with epinephrine and medialized. A curved suction hooked up to navigation was used to locate the maxillary antrum which was noted to be stenosed and opened using forceps. Next, the middle turbinate was injected with lidocaine with epinephrine and medialized. The curved suction hooked up to navigation was used to locate the maxillary antrum which was noted to be stenosed and opened using forceps. Bleeding was controlled using suction cautery and adrenaline-soaked pledgets. The patient was taken off anesthesia and taken to recovery room in stable manner. Paco Bear MD
== END 2018-10-14 14:00 | disposition home or self-care (01) ==
LOC: C.SDS 07:31
PROVIDERS: ATTEND Otolaryngology
DX: J34.3 Hypertrophy of nasal turbinates (principal); J32.0 Chronic maxillary sinusitis
CPT/HCPCS: 30130; 31020; 88304; J0690; J2001; J2250; J2704; J3010; J7030; J7040